=== PATIENT | male | born 1995 | race American Indian/Alaskan Native ===

== ENCOUNTER 2019-06-09 15:22 | Emergency (ER) | payer BC ==
[2019-06-09 15:30] VITALS: BP 130/91
--- NOTE | 2019-06-09 16:13 | XRay Report ---
CHEST 2 VIEWS INDICATION: cough, chills, n/v. COMPARISON: None FINDINGS: Support devices: None. Heart: Within normal limits. Lungs/pleura: No acute air space or interstitial disease. No pneumothorax. Additional findings: None. IMPRESSION: 1. No acute findings. Signer Name: Rajeev Madden MD Signed: 06/09/2019 4:09 PM Workstation Name: [id number]
[2019-06-09] MEDS ORDERED: ALUM-MAG HYDROXIDE-SIMETHICONE 200-200-20MG/5ML ORAL LIQD 30 ML PO ONE (16:28)
[2019-06-09] MEDS ORDERED: ONDANSETRON 4 MG ODT TAB PO ONE (16:28)
[2019-06-09] MEDS ORDERED: HYOSCYAMINE SUBL 0.125 MG TAB SL ONE (16:28)
--- NOTE | 2019-06-09 17:24 | Emergency Department Report ---
ED General Adult HPI - General Chief complaint: Upper Respiratory Infection Stated complaint: HEADACHES/CP/COUGH/V/D Time Seen by Provider: 06/09/19 16:18 Source: patient Mode of arrival: Ambulatory Limitations: No Limitations - History of Present Illness Initial comments: Patient is a 24-year-old male who presents emergency room with complaints of nausea, vomiting, diarrhea that began 2 days ago. 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 He states he has associated headache and burning in his chest and states he occasionally has a dry cough. He is able to tolerate water intake. He denies any fever, shortness of breath, abdominal pain. He denies any recent travel, sick contact with COVID positive patient. He denies any past medical history, daily medications, allergies to medications. He endorses marijuana use. He denies any alcohol use. - Related Data Previous Rx's Medication Instructions Recorded Last Taken Type Famotidine [Pepcid] 20 mg PO BID #30 tablet 06/09/19 Unknown Rx Ondansetron [Zofran Odt] 4 mg PO Q8HR PRN #10 tab.rapdis 06/09/19 Unknown Rx Allergies Allergy/AdvReac Type Severity Reaction Status Date / Time No Known Allergies Allergy Unverified 06/09/19 15:28 ED Review of Systems ROS: Stated complaint: HEADACHES/CP/COUGH/V/D Other details as noted in HPI Comment: All other systems reviewed and negative ED Past Medical Hx - Past Medical History Previous Medical History?: No - Surgical History Past Surgical History?: No - Social History Smoking Status: Never Smoker Substance Use Type: Marijuana - Medications Home Medications: Home Medications Medication Instructions Recorded Confirmed Last Taken Type Famotidine [Pepcid] 20 mg PO BID #30 tablet 06/09/19 Unknown Rx Ondansetron [Zofran Odt] 4 mg PO Q8HR PRN #10 tab.rapdis 06/09/19 Unknown Rx ED Physical Exam - General Limitations: No Limitations General appearance: alert, in no apparent distress - Head Head exam: Present: atraumatic, normocephalic - Eye Eye exam: Present: normal appearance - ENT ENT exam: Present: mucous membranes moist - Respiratory Respiratory exam: Present: normal lung sounds bilaterally. Absent: respiratory distress, wheezes, rales, rhonchi, stridor, chest wall tenderness, accessory muscle use, decreased breath sounds, prolonged expiratory - Cardiovascular Cardiovascular Exam: Present: regular rate, normal rhythm, normal heart sounds. Absent: systolic murmur, diastolic murmur, rubs, gallop - GI/Abdominal GI/Abdominal exam: Present: soft, normal bowel sounds. Absent: distended, tenderness, guarding, rebound, rigid - Neurological Exam Neurological exam: Present: alert, oriented X3 - Psychiatric Psychiatric exam: Present: normal affect, normal mood - Skin Skin exam: Present: warm, dry, intact ED Course Vital Signs 06/09/19 06/09/19 15:26 17:30 Temperature 98.4 F 98.4 F Pulse Rate 102 H 78 Respiratory 20 16 Rate Blood Pressure 130/91 Blood Pressure 130/91 [Left] O2 Sat by Pulse 97 97 Oximetry ED Medical Decision Making - Radiology Data Radiology results: report reviewed CHEST 2 VIEWS INDICATION: cough, chills, n/v. COMPARISON: None FINDINGS: Support devices: None. Heart: Within normal limits. Lungs/pleura: No acute air space or interstitial disease. No pneumothorax. Additional findings: None. IMPRESSION: 1. No acute findings. Signer Name: Rajeev Madden MD Signed: 06/09/2019 4:09 PM Workstation Name: [id number] Transcribed By: JW Dictated By: Rajeev Madden MD Electronically Authenticated By: Rajeev Madden MD Signed Date/Time: 06/09/191608 DD/ 08 TD/TT: - Medical Decision Making Patient is a 24-year-old male who presents emergency room with complaints of nausea, vomiting, diarrhea that began 2 days ago. 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 He states he has associated headache and burning in his chest and states he occasionally has a dry cough. He is able to tolerate water intake. He denies any fever, shortness of breath, abdominal pain. He denies any recent travel, sick contact with COVID positive patient. He denies any past medical history, daily medications, allergies to medications. He endorses doreen raghu use. He denies any alcohol use. Initial vitals with mild tachycardia which improved to normal upon repeat. No abnormality on physical examination as documented in chart. no clinical signs of dehydration, moist mucus membranes, normal BP, no tachycardia. pt can oral rehydrate. CXR: 1. No acute findings. Patient given Maalox, Zofran, Levsin and symptoms improved and burning in chest resolved. Patient had no further episodes of vomiting or diarrhea in the emergency department. Patient was able to tolerate p.o. intake. Patient given prescription for Pepcid and Zofran. Advised patient Please take medication as prescribed. Increase your water intake. Eat a bland diet. Follow-up with a primary care doctor. Return to the emergency room immediately for any new or worsening symptoms. Discussed self-isolation with patient for 1 week given most likely viral gastroenteritis. discussed hygiene and hand washing, discussed strict return precautions. he does not have high risk factors for COVID 19 no travel, no contacts, no fever, no SOB. - Differential Diagnosis gastroenteritis, viral syndrome, food poisoning, colitis, gastritis, PUD Critical care attestation.: If time is entered above; I have spent that time in minutes in the direct care of this critically ill patient, excluding procedure time. ED Disposition Clinical Impression: Nausea vomiting and diarrhea, Dry cough GERD (gastroesophageal reflux disease) Qualifiers: Esophagitis presence: without esophagitis Qualified Code(s): K21.9 - Gastro- esophageal reflux disease without esophagitis Disposition: DC-01 TO HOME OR SELFCARE Is pt being admited?: No Does the pt Need Aspirin: No Condition: Stable Instructions: Diet for Ulcers and Gastritis (ED), Gastroenteritis (ED), Gastroesophageal Reflux Disease (ED) Additional Instructions: Please take medication as prescribed. Increase your water intake. Eat a bland diet. Follow-up with a primary care doctor. Return to the emergency room immediately for any new or worsening symptoms. Prescriptions: Famotidine [Pepcid] 20 mg PO BID #30 tablet Ondansetron [Zofran Odt] 4 mg PO Q8HR PRN #10 tab.rapdis PRN Reason: Nausea And Vomiting Referrals: MONTSE HARRIS MD [Staff Physician] - 2-3 Days [facility] [Provider Group] - 2-3 Days [facility] [Outside] - 2-3 Days [facility] [Outside] - 2-3 Days Forms: Work/School Release Form(ED) Time of Disposition: 17:24 Print Language: YORUBA
== END 2019-06-09 17:34 | disposition home or self-care (01) ==
LOC: ED 15:22
DX: K21.9 Gastro-esophageal reflux disease without esophagitis (principal); R05 Cough; F12.10 Cannabis abuse, uncomplicated
CPT/HCPCS: 71046; 99283; Q0162